=== PATIENT | male | born 1970 | race Caucasian/White ===

== ENCOUNTER → 2017-04-22 | Outpatient (CLI) | payer OTHER ==
[~2017-04-22] MED LIST: ALPR0.25 PO; ALPR1TAB2 PO; AZIT250T89 PO; CITA20TA9 PO; COLC0.6T37 PO; HYDR-3240 PO; HYDR-3307 PO; INDO50CA PO; LEVO750T6 PO; LIDOCAINE 1%, 20ML ONE; LISI2.5T PO; OMNIPAQUE 300 MG/ML, 10ML VIAL ONE; ONDA4TAB13 SL; OXYC500S PO; PRED-402 PO; ROPI0.2537 PO; ROPI0.5T PO; ROPIvacaine/PF 0.2%, 20 ML ONE; WILL BRING LIST; ZOLP10TA PO
== END | disposition home or self-care (01) ==
LOC: CFH 14:02
PROVIDERS: ATTEND Orthopaedic Surgery
DX: M19.012 Primary osteoarthritis, left shoulder (principal); M25.712 Osteophyte, left shoulder; M75.42 Impingement syndrome of left shoulder
CPT/HCPCS: 73040; 73201; J2795; J3490; Q9967

== ENCOUNTER 2020-11-19 08:30 | Emergency (ER) | payer OTHER ==
[~2020-11-19] VITALS: Ht 175.3 cm; Wt 122.2 kg
[~2020-11-19 08:30] MED LIST changes: +HYDR-2214 PO; -HYDR-3240 PO; +HYDR-3248 PO; -HYDR-3307 PO; -INDO50CA PO; +INDO50CA15 PO; -LIDOCAINE 1%, 20ML ONE; -OMNIPAQUE 300 MG/ML, 10ML VIAL ONE; -ROPI0.2537 PO; +ROPI0.254 PO; -ROPIvacaine/PF 0.2%, 20 ML ONE
--- NOTE | 2020-11-19 08:54 | NUR ---
PT C/O OF NOT FEELING WELL X2 WEEKS, DIFFICULTY GETTING OOB. TOOK HIS BP THIS AM, AND 177/117 AT HOME. PT IS HTN, OTHER VSS. CALL LIGHT W/IN REACH. DR. ORTEGA BEDSIDE.
[2020-11-19] MEDS ORDERED: DIPHENHYDRAMINE 50 MG/ML, 1ML ONE (09:23)
[2020-11-19] MEDS ORDERED: KETOROLAC 30 MG/1 ML ONE (09:23)
[2020-11-19] MEDS ORDERED: METOCLOPRAMIDE 5 MG/ML, 2ML ONE (09:23)
[2020-11-19] MEDS ORDERED: KETOROLAC 30 MG/1 ML IVPush ONE (09:30)
[2020-11-19] MEDS ORDERED: SODIUM CHLORIDE 0.9% 1,000ML IVBOLUS ONE (09:30)
[2020-11-19] MEDS ORDERED: DIPHENHYDRAMINE 50 MG/ML, 1ML IVPush ONE (09:30)
[2020-11-19] MEDS ORDERED: SODIUM CHLORIDE FLUSH 10ML SYR IVF ONE (09:30)
[2020-11-19] MEDS ORDERED: METOCLOPRAMIDE 5 MG/ML, 2ML IVPush ONE (09:30)
--- NOTE | 2020-11-19 09:45 | NUR ---
PRECEPTOR RN: PIV STARTED. PT MEDICATED PER EMAR.
[2020-11-19 09:51] LABS: BASOPHILS % (AUTO) 0 % (0-1); EOSINOPHILS % (AUTO) 2 % (1-7); LYMPHOCYTES % (AUTO) 28 % (22-44); MEAN CORPUSCULAR HEMOGLOBIN 30.8 pg (27.5-34.5); MEAN CORPUSCULAR HGB CONC 33.8 g/dL (33.2-36.2); MEAN PLATELET VOLUME 7.6 fL (7.4-10.4); MONOCYTES % (AUTO) 7 % (2-9); NEUTROPHILS % (AUTO) 63 % (42-75); PLATELET COUNT 222 x10^3/uL (130-400); RED CELL DISTRIBUTION WIDTH 13.3 % (9.4-14.8)
[2020-11-19 09:52] LABS: MD NO
--- NOTE | 2020-11-19 09:53 | NUR ---
PRECEPTOR RN: PT IN RADIOLOGY.
[2020-11-19 10:02] LABS: ALANINE AMINOTRANSFERASE 31 U/L (12-78); ALBUMIN 3.7 g/dL (3.4-5.0); ANION GAP 2 mmol/L (5-15); CALCIUM 8.9 mg/dL (8.5-10.1); CHLORIDE 107 mmol/L (98-107)
--- NOTE | 2020-11-19 10:04 | NUR ---
PRECEPTOR RN: PT RETURNED FROM CT SCAN. STATES MEDICATION IS WORKING FOR HEADACHE. HYPTENSION STILL NOTED. RN TO INFORM BENJAMIN.
[2020-11-19 10:05] LABS: ALKALINE PHOSPHATASE 66 U/L (45-117); BILIRUBIN,TOTAL 0.5 mg/dL (0.2-1.0); CREATININE 0.96 mg/dL (0.7-1.3); TOTAL PROTEIN 7.3 g/dL (6.4-8.2)
--- NOTE | 2020-11-19 10:36 | NUR ---
PT PROVIDED BLANKET, STATES HE IS FEELING BETTER AND "JUST WANT TO SLEEP" ENCOURAGE HIM TO CLOSE HIS EYES AND NAP. PT DENIES NEEDING ANYTHING. PT HTN, BUT OTHER VSS. NADN. CALL LIGHT WITHIN REACH.
--- NOTE | 2020-11-19 10:44 | NUR ---
PRECEPTOR RN: RN CALLED CT SCAN TO TRY AND OBTAIN CT RESULTS. PER TECH RADIOLOGY IS IN A PROCEDURE RIGHT NOW AND "WILL GET TO IT."
--- NOTE | 2020-11-19 10:52 | NUR ---
PRECPTOR RN: PT LYING COMFORTABLY ON GURNEY. STATES NO PAIN AT THIS TIME. BP HAS DECREASED 133/78. AWAITING RESULTS FROM CT SCAN. NO NEEDS AT THIS TIME.
[2020-11-19] MEDS ORDERED: DEXAMETHASONE 4 MG/ML, 5ML ONE (11:24)
--- NOTE | 2020-11-19 11:27 | NUR ---
PRECEPTOR RN: PT MEDICATED PER EMAR.
[2020-11-19] MEDS ORDERED: DEXAMETHASONE 4 MG/ML, 1ML IVPush ONE (11:30)
--- NOTE | 2020-11-19 11:51 | NUR ---
PRECEPTOR RN: PT DISCHARGED HOME IN A STABLE CONDITION. DC INSTRUCTIONS DISCUSSED WITH PT. PT VERBALIZED UNDERSTANDING. NO FURTHER QUESTIONS OR CONCERNS EXPRESSED AT THAT TIME. PT AMBULATED WITH TO DC DESK WITH A STEADY GAIT.
[2020-11-19 11:52] VITALS: BP 121/76
== END 2020-11-19 11:53 | disposition home or self-care (01) ==
LOC: ED 09:05
DX: R51.9 Headache, unspecified (principal); I10 Essential (primary) hypertension
CPT/HCPCS: 36415; 70450; 80053; 85025; 96361; 96374; 96375; 99285; J1100; J1200; J1885; J2765; J7030

== ENCOUNTER 2021-01-21 16:45 | Emergency (ER) | payer OTHER ==
[~2021-01-21] VITALS: Ht 175.3 cm; Wt 118.0 kg
[2021-01-21 16:52] VITALS: BP 119/60
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
[2021-01-21] MEDS ORDERED: ONDANSETRON ODT 4 MG ONE (18:13)
[2021-01-21] MEDS ORDERED: OXYcodone/APAP 5/325MG TABLET ONE (18:14)
[2021-01-21] MEDS ORDERED: ONDANSETRON ODT 4 MG PO ONE (18:30)
[2021-01-21] MEDS ORDERED: OXYcodone/APAP 5/325MG TABLET PO ONE (18:30)
== END 2021-01-21 18:52 | disposition home or self-care (01) ==
LOC: ED 18:46
DX: S82.431A Displaced oblique fracture of shaft of right fibula, initial encounter for closed fracture (principal); S82.441A Displaced spiral fracture of shaft of right fibula, initial encounter for closed fracture; I10 Essential (primary) hypertension; X58.XXXA Exposure to other specified factors, initial encounter; Y93.89 Activity, other specified; Y92.328 Other athletic field as the place of occurrence of the external cause; Y99.8 Other external cause status
CPT/HCPCS: 73590; 73610; 73630; 99284; Q0162

== ENCOUNTER → 2021-01-24 | Outpatient (CLI) | payer OTHER | END | disposition home or self-care (01) | LOC: RAD 13:52 | PROVIDERS: ATTEND Physician Assistant | DX: S82.831A Other fracture of upper and lower end of right fibula, initial encounter for closed fracture (principal); M25.571 Pain in right ankle and joints of right foot; M79.671 Pain in right foot; M25.471 Effusion, right ankle; M25.474 Effusion, right foot; X58.XXXA Exposure to other specified factors, initial encounter; Y93.89 Activity, other specified; Y92.89 Other specified places as the place of occurrence of the external cause; Y99.8 Other external cause status ==